=== PATIENT | female | born 1995 | race Caucasian/White ===

== ENCOUNTER 2019-03-13 10:27 | Emergency (ER) | payer MEDICAID ==
[~2019-03-13] VITALS: Ht 157.5 cm; Wt 67.3 kg
[2019-03-13] MEDS ORDERED: acetaminophen 325mg tablet PO ONE (12:20)
[2019-03-13] MEDS ORDERED: triamcinolone acetonide 40mg/ml inj IM ONE (12:20)
[2019-03-13] MEDS ORDERED: ketorolac trometh inj. 60 MG/2 ML VIAL IM ONE (12:20)
[2019-03-13 13:13] VITALS: BP 105/68
== END 2019-03-13 13:35 | disposition home or self-care (01) ==
LOC: ER 10:28
DX: R10.11 Right upper quadrant pain (principal)
CPT/HCPCS: 96372; 99283; J1885; J3301

== ENCOUNTER 2020-03-03 15:03 | Emergency (ER) | payer MEDICAID ==
[~2020-03-03] VITALS: Ht 157.5 cm; Wt 63.6 kg
[~2020-03-03 15:03] MED LIST: LIDOcaine 1% W/epiNEPHrine 1:200,000 10ml vial ONE
[2020-03-03 15:10] VITALS: BP 147/66
[2020-03-03] MEDS ORDERED: SULF1TAB49 PO (16:38)
== END 2020-03-03 16:53 | disposition home or self-care (01) ==
LOC: ER 15:04
DX: L02.31 Cutaneous abscess of buttock (principal)
CPT/HCPCS: 10060; 87070; 99283

== ENCOUNTER 2020-08-23 14:16 | Emergency (ER) | payer MEDICAID ==
[~2020-08-23] VITALS: Ht 157.5 cm; Wt 61.7 kg
[2020-08-23 15:06] VITALS: BP 123/85
[2020-08-23] MEDS ORDERED: SULF1TAB49 PO (18:43)
== END 2020-08-23 19:20 | disposition home or self-care (01) ==
LOC: ER 14:17
DX: L03.317 Cellulitis of buttock (principal); Z79.2 Long term (current) use of antibiotics
CPT/HCPCS: 99283